=== PATIENT | male | born 1955 | race Caucasian/White ===

== ENCOUNTER 2022-09-01 17:37 | Inpatient (IN) | payer MEDICARE ==
[~2022-09-01] VITALS: Ht 190.5 cm; Wt 91.2 kg
[2022-09-01] MEDS ORDERED: FUROSEMIDE 20MG/2ML VIAL IVP ONE (17:45)
[2022-09-01] MEDS ORDERED: LABETALOL 5MG/ML SYR 20 MG/4 ML SYRINGE IV ONE (17:45)
[2022-09-01 18:07] LABS: BASOPHILS % 0.3 % (0.0-2.0); EOSINOPHILS % 2.6 % (0.0-5.0); HEMATOCRIT. 40.7 % (42.0-52.0); HEMOGLOBIN. 13.7 g/dL (14.0-18.0); LYMPHOCYTES % 15.7 % (20.0-50.0); MEAN CORPUSCULAR HEMOGLOBIN 30.3 pg (28.0-32.0); MEAN CORPUSCULAR VOLUME 89.9 fL (80.0-94.0); MEAN PLATELET VOLUME 8.1 fl (7.4-10.4); MONOCYTES % 10.4 % (2.0-8.0); PLATELET 298 x1000/uL (130-400); RED BLOOD CELL COUNT 4.53 mill/uL (4.7-6.1); RED CELL DISTRIBUTION WIDTH 13.7 % (11.6-14.6)
[2022-09-01 18:21] LABS: CHLORIDE 101 mEq/L (98-107)
[2022-09-01] MEDS: FUROSEMIDE 20MG/2ML VIAL IVP NR ×2 (23:06→23:07)
[2022-09-01] MEDS: LABETALOL 5MG/ML SYR 20 MG/4 ML SYRINGE IV NR ×2 (23:06→23:07)
[2022-09-02 18:08] VITALS: BP 156/91
[2022-09-02 18:17] VITALS: BP 156/91
[2022-09-02] MEDS ORDERED: ONDANSETRON HCL 4MG/2ML INJ IV PRN (18:45)
[2022-09-02] MEDS ORDERED: HYDROCODONE/ACETAMINOPHEN 5/325MG TABLET PO PRN (18:45)
[2022-09-02] MEDS ORDERED: CLONIDINE 0.1MG TABLET PO PRN (18:45)
[2022-09-02] MEDS ORDERED: NALOXONE HCL 0.4MG/ML VIAL IV PRN (19:30)
[2022-09-02 20:00] VITALS: BP 157/85
[2022-09-02] MEDS: CEFTRIAXONE 1,000 MG in DEXTROSE 5% WATER 50 ML IV SCH (20:59)
[2022-09-02] MEDS ORDERED: CEFTRIAXONE 1 G PREMIX 50 ML IV SCH (21:00)
[2022-09-02] MEDS: AMLODIPINE 5MG TABLET PO SCH (21:00)
[2022-09-03] VITALS (7 sets, daily range): BP systolic 116–159; BP diastolic 54–98
[2022-09-03 00:34] LABS: CREATINE KINASE MB FRACTION 4.9 ng/mL (0.5-3.6)
[2022-09-03 06:59] LABS: CHLORIDE 100 mEq/L (98-107)
[2022-09-03 07:03] LABS: BASOPHILS % 0.5 % (0.0-2.0); EOSINOPHILS % 1.9 % (0.0-5.0); HEMATOCRIT. 40.4 % (42.0-52.0); HEMOGLOBIN. 13.6 g/dL (14.0-18.0); LYMPHOCYTES % 17.9 % (20.0-50.0); MEAN CORPUSCULAR HEMOGLOBIN 30.5 pg (28.0-32.0); MEAN CORPUSCULAR VOLUME 90.7 fL (80.0-94.0); MEAN PLATELET VOLUME 8.9 fl (7.4-10.4); NEUTROPHILS % 68.7 % (40.0-76.0); PLATELET 285 x1000/uL (130-400); RED BLOOD CELL COUNT 4.46 mill/uL (4.7-6.1); RED CELL DISTRIBUTION WIDTH 13.4 % (11.6-14.6)
[2022-09-03 07:15] LABS: CREATINE KINASE MB FRACTION 4.5 ng/mL (0.5-3.6)
[2022-09-03] MEDS ORDERED: DEXTROSE 50% WATER 50ML SYRINGE IV PRN (08:15)
[2022-09-03] MEDS: ENOXAPARIN 40MG/0.4ML SYR SUBCUT SCH (08:36)
[2022-09-03] MEDS: BLOOD SUGAR DIAGNOSTIC STRIP TEST SCH ×4 (08:36→21:08)
[2022-09-03] MEDS: FUROSEMIDE 40MG/4ML VIAL IVP SCH (08:36)
[2022-09-03] MEDS: AMLODIPINE 5MG TABLET PO SCH ×2 (08:37→18:52)
[2022-09-03] MEDS: INSULIN LISPRO 100 UNITS/ML SUBCUT SCH ×4 (09:09→21:07)
[2022-09-03] MEDS: CEFTRIAXONE 1,000 MG in DEXTROSE 5% WATER 50 ML IV SCH (18:52)
[2022-09-03] MEDS ORDERED: INSULIN GLARGINE 100 UNITS/ML SUBCUT SCH (22:00)
[2022-09-04] VITALS: BP 159/152
[2022-09-04 04:00] VITALS: BP 127/74
[2022-09-04] MEDS: INSULIN LISPRO 100 UNITS/ML SUBCUT SCH ×2 (06:42→11:40)
[2022-09-04] MEDS: BLOOD SUGAR DIAGNOSTIC STRIP TEST SCH ×2 (06:43→11:40)
[2022-09-04 08:00] VITALS: BP 131/79
[2022-09-04] MEDS: FUROSEMIDE 40MG/4ML VIAL IVP SCH (08:52)
[2022-09-04] MEDS: AMLODIPINE 5MG TABLET PO SCH (08:53)
[2022-09-04] MEDS: ENOXAPARIN 40MG/0.4ML SYR SUBCUT SCH (08:53)
[2022-09-04 12:00] VITALS: BP 123/78
== END 2022-09-04 11:30 | DRG 291 ==
LOC: ER 17:37 → MICUSO 19:10 → EDBEDREQTM 19:30 → EDBEDREQ 19:30 → 3WST 09-02 17:34
PROVIDERS: ADMIT Internal Medicine; ATTEND Internal Medicine
DX: I11.0 Hypertensive heart disease with heart failure (principal); I50.41 Acute combined systolic (congestive) and diastolic (congestive) heart failure; L03.115 Cellulitis of right lower limb; L03.116 Cellulitis of left lower limb; E11.65 Type 2 diabetes mellitus with hyperglycemia; Z20.822 Contact with and (suspected) exposure to COVID-19; I10 Essential (primary) hypertension; Z82.49 Family history of ischemic heart disease and other diseases of the circulatory system
CPT/HCPCS: 36415; 71045; 80048; 80053; 82550; 82553; 82962; 83036; 83880; 84484; 85025; 87426; 93005; 93306; 93970; 99291; J0696; J1650; J1815; J1940; J3490; J7060

== ENCOUNTER 2023-10-26 21:52 | Emergency (ER) | payer MEDICARE, MEDICAID ==
[~2023-10-26] VITALS: Ht 195.6 cm; Wt 96.0 kg
[2023-10-26 21:55] VITALS: O2SAT 94
[2023-10-26 22:41] LABS: DIFFERENTIAL COMMENT 1; HEMATOCRIT. 39.4 % (42.0-52.0); HEMOGLOBIN. 13.3 g/dL (14.0-18.0); MEAN CORPUSCULAR HEMOGLOBIN 30.2 pg (28.0-32.0); MEAN CORPUSCULAR HGB CONC 33.7 g/dL (31.0-37.0); MEAN CORPUSCULAR VOLUME 89.5 fL (80.0-94.0); MEAN PLATELET VOLUME 8.9 fl (7.4-10.4); PLATELET 238 x1000/uL (130-400); RED CELL DISTRIBUTION WIDTH 12.9 % (11.6-14.6); WHITE BLOOD COUNT 8.7 x1000/uL (4.5-11.0)
[2023-10-26 22:51] LABS: ATYPICAL LYMPHOCYTES 4; GIANT PLATELETS 1+; PLATELET ESTIMATE NORMAL
[2023-10-26 22:52] LABS: PROTHROMBIN TIME 11.1 sec (9.6-11.0)
[2023-10-26 23:01] LABS: ALANINE AMINOTRANSFERASE 17 IU/L (10-49); ALBUMIN 4.1 g/dL (3.2-4.8); ASPARTATE AMINOTRANSFERASE 13 IU/L (<34); BETA HYDROXYBUTYRATE 0.3 mMol/L (0.0-0.3); BILIRUBIN TOTAL 0.7 mg/dL (0.1-1.0); CALCIUM 8.9 mg/dL (8.7-10.4); CARBON DIOXIDE 25 mEq/L (21-32); CHLORIDE 99 mEq/L (98-107); PROTEIN TOTAL 6.4 g/dL (6.0-8.3); SODIUM 132 mEq/L (136-145); TROPONIN I HIGH SENSITIVITY 12 ng/L (3.0-53); UREA NITROGEN BLOOD 15 mg/dL (9-23)
[2023-10-26 23:07] LABS: GLUCOSE 259 mg/dL (70-105)
[2023-10-27] MEDS: INSULIN REGULAR (HUMULIN R) 300UNITS/3ML VIAL IV ONE (01:07)
[2023-10-27 01:12] LABS: TROPONIN I HIGH SENSITIVITY 14 ng/L (3.0-53)
[2023-10-27] MEDS: ASPIRIN 325MG EC TABLET PO ONE (07:46)
[2023-10-27 13:37] VITALS: BP 134/76; PULSE 76; RESP 16; TEMP 98.8
== END 2023-10-27 13:40 | disposition home or self-care (01) ==
LOC: ER 21:52
DX: E11.65 Type 2 diabetes mellitus with hyperglycemia (principal); I10 Essential (primary) hypertension; E78.00 Pure hypercholesterolemia, unspecified; Z79.85 Long-term (current) use of injectable non-insulin antidiabetic drugs
CPT/HCPCS: 99285; 71045; 80053; 82010; 82962; 85025; 85610; 84484; 36415; 96374; J1815; 96375